=== PATIENT | male | born 1975 | race Caucasian/White ===

== ENCOUNTER 2019-12-14 05:12 | Emergency (ER) | payer MEDICARE, OTHER ==
[~2019-12-14] VITALS: Ht 172.7 cm; Wt 59.0 kg
[~2019-12-14 05:12] MED LIST: CANNABIDIOL; CARI250T9 PO; LORA0.5T PO; MORP15TA17 PO; OMEP20TA5 PO; TYRO500C PO; VENL25TA4 PO; [UNRECOGNIZED DRUG - CODE] PO; [UNRECOGNIZED DRUG - OTHER]
--- NOTE | 2019-12-14 05:18 | NUR ---
PT JESSICA C/O SYNCOPAL EPISODE AT 0300 AM TODAY. PER PT, PRIOR TO THAT, HE STARTED FEELING WEAK AND DIZZY. PT AAOX4, RESPIRATIONS EVEN AND UNLABORED ON RA W/ NAD NOTED. PT CONNECTED TO THE MONITOR AND POX.
--- NOTE | 2019-12-14 05:38 | NUR ---
BLOOD COLLECTED AND SENT TO LAB
--- NOTE | 2019-12-14 05:39 | NUR ---
PT BROUGHT TO [facility]IA [facility]
[2019-12-14 05:42] LABS: BASOPHILS % (AUTO) 0.4 % (0.0-2.0); EOSINOPHILS % (AUTO) 0.8 % (0.0-6.0); HEMATOCRIT 33 % (39-51); HEMOGLOBIN 11.5 g/dL (13.5-17.5); LYMPHOCYTES # (AUTO) 1.8 /CMM (0.8-4.8); LYMPHOCYTES % (AUTO) 16.9 % (20.0-44.0); MEAN CORPUSCULAR HGB CONC 34 g/dl (31.0-36.0); MEAN CORPUSCULAR VOLUME 91 fL (80-96); MONOCYTES # (AUTO) 0.9 /CMM (0.1-1.30); MONOCYTES % (AUTO) 8.2 % (2.0-12.0); NEUTROPHILS % (AUTO) 73.7 % (43.0-81.0); PLATELET COUNT (AUTO) 302 /CMM (150-450); RED BLOOD CELL COUNT(AUTO) 3.67 MIL/uL (4.5-6.0); WHITE BLOOD COUNT (AUTO) 10.8 K/uL (4.3-11.0)
[2019-12-14 05:49] LABS: CALCIUM, SERUM 9.3 mg/dL (8.5-10.1); CARBON DIOXIDE 32 mmol/L (21-32); CHLORIDE 105 mmol/L (98-107); CREATININE 1.2 mg/dL (0.6-1.3); GLUCOSE 125 mg/dL (74-106); POTASSIUM 3.5 mmol/L (3.5-5.1); SODIUM SERUM 141 mmol/L (136-145); UREA NITROGEN, BLOOD 33 mg/dL (7-18)
--- NOTE | 2019-12-14 05:52 | NUR ---
PT BACK FROM CT
[2019-12-14 05:55] LABS: ALANINE AMINOTRANSFERASE 25 U/L (12-78); ALBUMIN 3.5 g/dL (3.4-5.0); ALKALINE PHOSPHATASE 81 U/L (46-116); ASPARTATE AMINOTRANSFERASE 20 U/L (15-37); BILIRUBIN,DIRECT 0.1 mg/dL (0.0-0.2); BILIRUBIN,TOTAL 0.2 mg/dL (0.2-1.0); TOTAL PROTEIN, SERUM 6.3 g/dL (6.4-8.2)
--- NOTE | 2019-12-14 06:40 | NUR ---
PT UNABLE TO URINATE AT THIS TIME MADE AWARE
--- NOTE | 2019-12-14 06:47 | NUR ---
[employer]FT[employer]ERSON ETA 35 MINS
[2019-12-14] MEDS ORDERED: HYDROCORTISONE SOD SUCCINATE 100 MG/2 ML VIAL ONE (06:48)
[2019-12-14] MEDS ORDERED: HYDROCORTISONE SOD SUCCINATE 100 MG/2 ML VIAL IV ONE (07:00)
[2019-12-14 07:39] VITALS: BP 117/84
--- NOTE | 2019-12-14 07:39 | NUR ---
Patient discharged to home in stable condition. Written and verbal after care instructions given. Patient verbalizes understanding of instruction.IV removed. Catheter intact and site benign. Pressure and 4x4 applied to site. No bleeding noted. ambulatory with a steady gait
== END 2019-12-14 07:40 | disposition home or self-care (01) ==
LOC: ER 05:12
DX: R42 Dizziness and giddiness (principal); R41.82 Altered mental status, unspecified; R56.9 Unspecified convulsions; J45.909 Unspecified asthma, uncomplicated; G89.29 Other chronic pain; M54.9 Dorsalgia, unspecified; E27.40 Unspecified adrenocortical insufficiency; Z86.73 Personal history of transient ischemic attack (TIA), and cerebral infarction without residual deficits; Z86.74 Personal history of sudden cardiac arrest; Z85.038 Personal history of other malignant neoplasm of large intestine; Z88.2 Allergy status to sulfonamides; Z91.013 Allergy to seafood; Z60.2 Problems related to living alone; Z79.899 Other long term (current) drug therapy
CPT/HCPCS: 70450; 71045; 80048; 80076; 82962; 84484; 85025; 85730; 93005; 96374; 99285; J1720; 36415

== ENCOUNTER 2020-08-04 19:55 | Emergency (ER) | payer MEDICARE, OTHER ==
[~2020-08-04] VITALS: Ht 172.7 cm; Wt 67.1 kg
--- NOTE | 2020-08-04 20:05 | NUR ---
Pt bibra c/o seizure. Pt was given 5mg vesed by medics. Pt aa0x0 breathing evenly and unlabored. Pt appears pale. Not responsive to painful stimuli.Pt has fixated pinpoint pupils. Pt diaphoretic and cool to touch. Iv rt hand 20g initated and left hand 18g intiated. Blood and urine obtained and sent to lab. pt attached to residential monitor and pox. Pt placed on his side with seizure precautions setup. pt placed on 2L O2 via NC for pt comfort.
--- NOTE | 2020-08-04 20:10 | NUR ---
verbal order to give iv NS benjamin
[2020-08-04] MEDS ORDERED: LIDOCAINE 2% JEL UROJET 10 ML MM ONE (20:15)
--- NOTE | 2020-08-04 20:20 | NUR ---
urine sent to lab
[2020-08-04 20:24] LABS: BASOPHILS # (AUTO) 0.1 /CMM (0.0-0.2); BASOPHILS % (AUTO) 1.3 % (0.0-2.0); EOSINOPHILS % (AUTO) 12.3 % (0.0-6.0); HEMATOCRIT 41 % (39-51); LYMPHOCYTES # (AUTO) 3.1 /CMM (0.8-4.8); MEAN CORPUSCULAR HGB CONC 34 g/dl (31.0-36.0); MEAN CORPUSCULAR VOLUME 91 fL (80-96); MONOCYTES # (AUTO) 0.7 /CMM (0.1-1.30); MONOCYTES % (AUTO) 7.1 % (2.0-12.0); NEUTROPHILS # (AUTO) 4.3 /CMM (1.8-8.9); NEUTROPHILS % (AUTO) 46.3 % (43.0-81.0); PLATELET COUNT (AUTO) 350 /CMM (150-450); RED BLOOD CELL COUNT(AUTO) 4.49 MIL/uL (4.5-6.0); WHITE BLOOD COUNT (AUTO) 9.3 K/uL (4.3-11.0)
[2020-08-04 20:37] LABS: BILIRUBIN,DIRECT 0.1 mg/dL (0.0-0.2); BILIRUBIN,TOTAL 0.9 mg/dL (0.2-1.0); CALCIUM, SERUM 9.1 mg/dL (8.5-10.1); CREATININE 1.6 mg/dL (0.6-1.3); POTASSIUM 4.2 mmol/L (3.5-5.1); TOTAL PROTEIN, SERUM 7.3 g/dL (6.4-8.2)
--- NOTE | 2020-08-04 20:55 | NUR ---
called lab to follow up on UA.
[2020-08-04 21:00] LABS: BILIRUBIN,URINE Negative (NEGATIVE); COLOR,URINE YELLOW (YELLOW); LEUKOCYTE ESTERASE ,URINE Negative (NEGATIVE); NITRITE, URINE Negative (NEGATIVE); PROTEIN,URINE Negative (NEGATIVE); UGLUCOSE Negative (NEGATIVE); UROBILINOGEN,URINE 0.2 EU/dL (0.2)
[2020-08-04] MEDS ORDERED: IV NS 0.9% 1,000 ML BAG IV ONE (21:00)
[2020-08-04 21:02] LABS: ACETAMINOPHEN < 2 ug/ml (10-30)
[2020-08-04 21:03] LABS: ALCOHOL, BLOOD < 3 mg/dL (0-0)
[2020-08-04] MEDS ORDERED: HYDROCORTISONE SOD SUCCINATE 100 MG/2 ML VIAL ONE (21:22)
[2020-08-04] MEDS ORDERED: HYDROCORTISONE SOD SUCCINATE 100 MG/2 ML VIAL IV ONE (21:30)
--- NOTE | 2020-08-04 21:35 | NUR ---
BACK FROM CT
--- NOTE | 2020-08-04 22:57 | NUR ---
Gerson Brady [phone] CAN PICK HIM UP.
--- NOTE | 2020-08-05 02:32 | NUR ---
pt is awake and alert. Able to answer questions and follow commands. Pt disorented to the events that happened prior to coming to the emergency room.
[2020-08-05] MEDS ORDERED: LIDOCAINE 2% JEL UROJET 10 ML MM ONE (02:54)
--- NOTE | 2020-08-05 05:54 | NUR ---
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 eta 40min
--- NOTE | 2020-08-05 06:45 | NUR ---
Patient discharged to home in stable condition. Written and verbal after care instructions given. Patient verbalizes understanding of instruction.IV removed. Catheter intact and site benign. Pressure and 4x4 applied to site. No bleeding noted. Pt ambulatory with a steady gait
[2020-08-05 06:56] VITALS: BP 112/82
== END 2020-08-05 06:45 | disposition home or self-care (01) ==
LOC: ER 19:56
DX: G40.909 Epilepsy, unspecified, not intractable, without status epilepticus (principal); N28.9 Disorder of kidney and ureter, unspecified; R41.82 Altered mental status, unspecified; I10 Essential (primary) hypertension; J45.909 Unspecified asthma, uncomplicated; M54.9 Dorsalgia, unspecified; G89.29 Other chronic pain; Z85.038 Personal history of other malignant neoplasm of large intestine; Z86.73 Personal history of transient ischemic attack (TIA), and cerebral infarction without residual deficits; Z88.2 Allergy status to sulfonamides; Z91.013 Allergy to seafood; Z91.018 Allergy to other foods; Z60.2 Problems related to living alone; Z79.899 Other long term (current) drug therapy
CPT/HCPCS: 36415; 70450; 80048; 80076; 80164; 80299; 80307; 80320; 81003; 82550; 84443; 85025; 93005; 96360; 96374; 99285; J1720; J3490 ×2; J7030 ×2; G0480

== ENCOUNTER 2020-11-13 19:53 | Emergency (ER) | payer MEDICARE, OTHER ==
[~2020-11-13] VITALS: Ht 172.7 cm; Wt 60.3 kg
--- NOTE | 2020-11-13 20:00 | NUR ---
[id number] C/O L FOOT PAIN S/P STEPPED ON METAL PIN . TDAP NOT UPDATED. PT WS PALCED IN BED 4 ER. VSS. WILL CONT TO MONITOR
--- NOTE | 2020-11-13 20:05 | NUR ---
AT BED SIDE
[2020-11-13] MEDS ORDERED: TDAP [DIPH/PERTUSSIS/TET] 0.5 ML VIAL IM ONE ×2 (20:11→20:30)
[2020-11-13] MEDS ORDERED: HYDROCORTISONE SOD SUCCINATE 100 MG/2 ML VIAL ONE (20:11)
--- NOTE | 2020-11-13 20:23 | NUR ---
rad at bed side
[2020-11-13] MEDS ORDERED: HYDROCORTISONE SOD SUCCINATE 100 MG/2 ML VIAL IM ONE (20:30)
[2020-11-13 21:20] VITALS: BP 131/84
--- NOTE | 2020-11-13 21:20 | NUR ---
pt is medically stable for D/C. Patient discharged to home in stable condition. Written and verbal after care instructions given. Patient verbalizes understanding of instruction.
== END 2020-11-13 21:21 | disposition home or self-care (01) ==
LOC: ER 19:53
DX: S91.331A Puncture wound without foreign body, right foot, initial encounter (principal); S91.332A Puncture wound without foreign body, left foot, initial encounter; I10 Essential (primary) hypertension; J45.909 Unspecified asthma, uncomplicated; G89.29 Other chronic pain; Z86.73 Personal history of transient ischemic attack (TIA), and cerebral infarction without residual deficits; Z88.2 Allergy status to sulfonamides; Z91.013 Allergy to seafood; Z60.2 Problems related to living alone; Z79.899 Other long term (current) drug therapy; W22.8XXA Striking against or struck by other objects, initial encounter; Y93.89 Activity, other specified; Y92.89 Other specified places as the place of occurrence of the external cause; Y99.8 Other external cause status
CPT/HCPCS: 73630; 90471; 90715; 96372; 99284; J1720

== ENCOUNTER 2021-05-26 17:52 | Emergency (ER) | payer MEDICARE, OTHER ==
[~2021-05-26] VITALS: Ht 172.7 cm; Wt 63.5 kg
[2021-05-26] MEDS ORDERED: GADOTERATE MEGLUMINE 5 MMOL/10 ML VIAL IV ONE (18:08)
--- NOTE | 2021-05-26 18:15 | NUR ---
PT CAME TO ER C/O R LOWER BACK PAIN X 2 DAYS. PT WAS IN SHOWER AND FELT A POP. PAIN IS RATED 10/10 AND RADIATES TO TESTICLES. ADMITS WEAKNESS OF THE R LEG, CAME TO ER W A CANE. REPORTS DIFFICULTY URINATING AND HAS TO "BEND 90 DEGREES TO BE ABLE TO URINATE." REPORTS CONSTIPATION FOR 2 WEEKS, HAS BEEN USING ENEMAS AND LACTULOSE TO NO RELIEF. HX OF L3, L4, L5, AND SACRAL SPINAL SURGERY. HX OF L HAND PARALYSIS S/P CERVICAL EPIDURAL. A&OX4, AMBULATORY W CANE ASSISTANCE, BREATHING EVEN AND UNLABORED, PULSES 2+ BILATERALLY, R LEG WEAKNESS, L HAND PARALYZED.
[2021-05-26 18:41] LABS: BASOPHILS % (AUTO) 0.6 % (0.0-2.0); EOSINOPHILS % (AUTO) 7.9 % (0.0-6.0); HEMATOCRIT 40 % (39-51); HEMOGLOBIN 13.7 g/dL (13.5-17.5); LYMPHOCYTES # (AUTO) 2.4 K/uL (0.8-4.8); LYMPHOCYTES % (AUTO) 30.1 % (20.0-44.0); MEAN CORPUSCULAR HGB CONC 34 g/dl (31.0-36.0); MEAN CORPUSCULAR VOLUME 91 fL (80-96); MONOCYTES # (AUTO) 0.8 K/uL (0.1-1.30); MONOCYTES % (AUTO) 10.6 % (2.0-12.0); NEUTROPHILS % (AUTO) 50.8 % (43.0-81.0); PLATELET COUNT (AUTO) 313 K/uL (150-450); RED BLOOD CELL COUNT(AUTO) 4.42 MIL/uL (4.5-6.0); WHITE BLOOD COUNT (AUTO) 7.9 K/uL (4.3-11.0)
[2021-05-26] MEDS ORDERED: MORPHINE SULFATE INJ 2 MG/ML DISP.SYRIN IV ONE ×2 (19:00→20:30)
[2021-05-26 19:02] LABS: CARBON DIOXIDE 32 mmol/L (21-32); CHLORIDE 102 mmol/L (98-107); CREATININE 1.4 mg/dL (0.6-1.3); GLUCOSE 97 mg/dL (74-106); POTASSIUM 4.8 mmol/L (3.5-5.1); SODIUM SERUM 138 mmol/L (136-145); UREA NITROGEN, BLOOD 16 mg/dL (7-18)
[2021-05-26] MEDS ORDERED: MORPHINE SULFATE INJ 4 MG/ML DISP.SYRIN ONE ×2 (19:13→20:43)
[2021-05-26 19:14] LABS: C-REACTIVE PROTEIN < 0.2 mg/dL (0.0-0.9)
--- NOTE | 2021-05-26 19:36 | NUR ---
TAKEN TO RADIOLOGY
--- NOTE | 2021-05-26 20:42 | NUR ---
[place] [phone]
--- NOTE | 2021-05-26 21:05 | NUR ---
PT RESTING IN BED, SPEAKING ON CELL PHONE
--- NOTE | 2021-05-26 21:35 | NUR ---
Patient discharged to home in stable condition. Written and verbal after care instructions given. Patient verbalizes understanding of instruction. IV removed. Catheter intact and site benign. Pressure and 4x4 applied to site. No bleeding noted. PT ambulatory with a steady gait. Pt awaiting ride home
[2021-05-26 21:54] VITALS: BP 106/75
== END 2021-05-26 21:35 | disposition home or self-care (01) ==
LOC: ER 18:07
DX: M54.16 Radiculopathy, lumbar region (principal); I10 Essential (primary) hypertension; J45.909 Unspecified asthma, uncomplicated; G89.29 Other chronic pain; Z88.2 Allergy status to sulfonamides; Z91.013 Allergy to seafood; Z91.018 Allergy to other foods; Z86.73 Personal history of transient ischemic attack (TIA), and cerebral infarction without residual deficits; Z60.2 Problems related to living alone; Z79.899 Other long term (current) drug therapy
CPT/HCPCS: 36415; 72131; 72158; 80048; 85025; 85652; 86140; 96374; 96376; 99285; J2270 ×2; A9575

== ENCOUNTER 2021-06-10 15:06 | Emergency (ER) | payer MEDICARE, OTHER ==
[~2021-06-10] VITALS: Ht 172.7 cm; Wt 63.5 kg
[2021-06-10 16:41] VITALS: BP 126/79
--- NOTE | 2021-06-10 17:12 | NUR ---
PT SEEN AND EXAMINED BY JOLEEN GALVAN.
--- NOTE | 2021-06-10 17:22 | NUR ---
ER PHLEB AT BEDSIDE FOR BLOOD DRAW.
[2021-06-10 17:31] LABS: WHITE BLOOD COUNT (AUTO) 8.6 K/uL (4.3-11.0)
[2021-06-10 17:33] LABS: RED BLOOD CELL COUNT(AUTO) 4.27 MIL/uL (4.5-6.0)
[2021-06-10 17:37] LABS: BASOPHILS # (AUTO) 0.1 K/uL (0.0-0.2); BASOPHILS % (AUTO) 1.1 % (0.0-2.0); CALCIUM, SERUM 8.9 mg/dL (8.5-10.1); CARBON DIOXIDE 32 mmol/L (21-32); CHLORIDE 104 mmol/L (98-107); EOSINOPHILS % (AUTO) 4.2 % (0.0-6.0); GLUCOSE 103 mg/dL (74-106); HEMATOCRIT 39 % (39-51); HEMOGLOBIN 13.1 g/dL (13.5-17.5); LYMPHOCYTES # (AUTO) 2.8 K/uL (0.8-4.8); LYMPHOCYTES % (AUTO) 32.1 % (20.0-44.0); MEAN CORPUSCULAR HGB CONC 34 g/dl (31.0-36.0); MEAN CORPUSCULAR VOLUME 90 fL (80-96); MONOCYTES # (AUTO) 0.9 K/uL (0.1-1.30); MONOCYTES % (AUTO) 9.9 % (2.0-12.0); NEUTROPHILS # (AUTO) 4.5 K/uL (1.8-8.9); NEUTROPHILS % (AUTO) 52.7 % (43.0-81.0); PLATELET COUNT (AUTO) 314 K/uL (150-450); POTASSIUM 4.3 mmol/L (3.5-5.1); SODIUM SERUM 143 mmol/L (136-145); UREA NITROGEN, BLOOD 11 mg/dL (7-18)
--- NOTE | 2021-06-10 17:57 | NUR ---
COVID SWAB DONE AND SENT TO LAB
== END 2021-06-10 19:04 | disposition home or self-care (01) ==
LOC: ER 15:54
DX: R50.83 Postvaccination fever (principal); T50.B95A Adverse effect of other viral vaccines, initial encounter; Y92.89 Other specified places as the place of occurrence of the external cause; Z20.822 Contact with and (suspected) exposure to COVID-19; Z88.2 Allergy status to sulfonamides; Z91.013 Allergy to seafood; J45.909 Unspecified asthma, uncomplicated; Z86.73 Personal history of transient ischemic attack (TIA), and cerebral infarction without residual deficits; I10 Essential (primary) hypertension; Z85.038 Personal history of other malignant neoplasm of large intestine; G89.29 Other chronic pain; M54.9 Dorsalgia, unspecified; Z86.74 Personal history of sudden cardiac arrest
CPT/HCPCS: 36415; 80048-TC; 84484-TC; 85025-TC; C9803